=== PATIENT | male | born 1985 | race Caucasian/White ===

== ENCOUNTER 2018-12-04 20:34 | Emergency (ER) | payer MEDICAID ==
[~2018-12-04] VITALS: Ht 175.3 cm; Wt 64.9 kg
[2018-12-04] MEDS ORDERED: ONDA8TAB6 PO (20:46)
[2018-12-04] MEDS ORDERED: OMEP20CA4 PO (20:46)
--- NOTE | 2018-12-04 20:56 | NUR ---
Dr. Hoffmann in patient room
[2018-12-04] MEDS ORDERED: MORPHINE SULFATE 4 MG/1 ML DISP.SYRIN ONE (21:10)
[2018-12-04] MEDS ORDERED: ONDANSETRON 4 MG/2 ML VIAL ONE ×2 (21:10→21:31)
[2018-12-04] MEDS ORDERED: PANTOPRAZOLE SODIUM 40 MG VIAL IV ONE (21:15)
[2018-12-04] MEDS ORDERED: diphenhydrAMINE 50 MG/1 ML VIAL IV ONE (21:15)
[2018-12-04] MEDS ORDERED: METOCLOPRAMIDE HCL 10 MG/2 ML VIAL IV ONE (21:15)
[2018-12-04] MEDS ORDERED: IV NORMAL SALINE 1000 ML BAG IV ONE (21:15)
[2018-12-04] MEDS ORDERED: ONDANSETRON 4 MG/2 ML VIAL IV ONE (21:15)
[2018-12-04] MEDS ORDERED: HYDROMORPHONE 1 MG/1 ML DISP.SYRIN ONE (21:20)
[2018-12-04 21:22] LABS: BASOPHILS # (AUTO) 0.2 K/uL (0.0-8.0); EOSINOPHILS # (AUTO) 0.3 K/uL (0.0-0.7); EOSINOPHILS % (AUTO) 1.8 % (0.0-7.0); HEMATOCRIT 42.1 % (36.7-47.1); HEMOGLOBIN 13.8 g/dL (12.5-16.3); LYMPHOCYTES # (AUTO) 2.4 K/uL (20.0-40.0); LYMPHOCYTES % (AUTO) 14.7 % (20.5-51.5); MEAN CORPUSCULAR HEMOGLOBIN 30.1 uug (23.8-33.4); MEAN CORPUSCULAR HGB CONC 33 g/dL (32.5-36.3); MEAN CORPUSCULAR VOLUME 92.2 fL (73.0-96.2); MONOCYTES # (AUTO) 0.8 K/uL (2.0-10.0); MONOCYTES % (AUTO) 4.8 % (0.0-11.0); NEUTROPHILS # (AUTO) 12.4 K/uL (1.8-8.9); NEUTROPHILS % (AUTO) 77.7 % (38.5-71.5); PLATELET COUNT (AUTO) 295 K/uL (152-348); RED BLOOD CELL COUNT(AUTO) 4.57 MIL/uL (4.06-5.63)
[2018-12-04] MEDS ORDERED: METOCLOPRAMIDE HCL 10 MG/2 ML VIAL ONE (21:31)
[2018-12-04] MEDS ORDERED: PANTOPRAZOLE SODIUM 40 MG VIAL ONE (21:31)
[2018-12-04] MEDS ORDERED: diphenhydrAMINE 50 MG/1 ML VIAL ONE (21:32)
[2018-12-04 21:35] LABS: POTASSIUM 3.8 mmol/L (3.5-5.1)
[2018-12-04 21:41] LABS: BILIRUBIN,DIRECT 0.1 mg/dL (0.0-0.2); BILIRUBIN,TOTAL 0.2 mg/dL (0.2-1.0); TOTAL PROTEIN, SERUM 7.2 g/dL (6.4-8.2)
--- NOTE | 2018-12-04 22:28 | NUR ---
Patient discharged to home in stable conditon. Written and verbal after care instructions given. Patient verbalizes understanding of instructions. patient ambulatory with steady gait. Exit care oackage and oersonal belongings taken with patient. Patient mother verbalizes and consent to driving ther patient home. Patient denies any pain/discomfort prior to discharge.,
[2018-12-04 22:43] VITALS: BP 107/71
== END 2018-12-04 22:30 | disposition home or self-care (01) ==
LOC: ER 20:36
DX: K29.70 Gastritis, unspecified, without bleeding (principal); K21.9 Gastro-esophageal reflux disease without esophagitis; Z90.49 Acquired absence of other specified parts of digestive tract; Z79.899 Other long term (current) drug therapy
CPT/HCPCS: 36415; 80048; 80076; 83690; 85025; 96361; 96374; 96375; 99283; C9113; J1200; J2405 ×2; J2765; A4663; J1170; J2270; J7030

== ENCOUNTER 2020-12-30 19:52 | Emergency (ER) | payer MEDICAID ==
[~2020-12-30] VITALS: Ht 175.3 cm; Wt 63.5 kg
[~2020-12-30 19:52] MED LIST: OMEP20CA4 PO; ONDA8TAB6 PO
--- NOTE | 2020-12-30 20:05 | NUR ---
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 PT A/O X4, NO SOB OR LABORED BREATHING, AFEBRILE. DENIES ANY CP/PRESSURE. PT WAS GIVEN ORAL 4MG ZOFRAN ON THE FIELD. CLEAR SPEECH, COMPLETE SENTENCES. DR. WHITE AT BEDSIDE, MSE IN PROGRESS.
[2020-12-30] MEDS ORDERED: ONDANSETRON 4 MG/2 ML VIAL IV ONE ×2 (20:15→21:15)
[2020-12-30] MEDS ORDERED: IV NORMAL SALINE 1000 ML BAG IV ONE (20:15)
--- NOTE | 2020-12-30 20:18 | NUR ---
LAB AT BEDSIDE.
[2020-12-30] MEDS ORDERED: ONDANSETRON 4 MG/2 ML VIAL ONE ×2 (20:34→21:21)
[2020-12-30 20:38] LABS: HEMATOCRIT 42.9 % (36.7-47.1); MEAN CORPUSCULAR HEMOGLOBIN 31.8 uug (23.8-33.4); MEAN CORPUSCULAR VOLUME 93.9 fL (73.0-96.2); PLATELET COUNT (AUTO) 371 K/uL (152-348)
[2020-12-30 21:00] LABS: POTASSIUM 3.8 mmol/L (3.5-5.1)
[2020-12-30 21:04] LABS: BILIRUBIN,DIRECT 0.1 mg/dL (0.0-0.2); BILIRUBIN,TOTAL 0.1 mg/dL (0.2-1.0); TOTAL PROTEIN, SERUM 7.8 g/dL (6.4-8.2)
--- NOTE | 2020-12-30 21:12 | NUR ---
PT TAKEN DOWN FOR CT.
[2020-12-30] MEDS ORDERED: IOHEXOL 300MG/ML 100 ML INFUS..BTL ONE (21:27)
[2020-12-30] MEDS ORDERED: SWABABLE VALVE TRANSFER SET EA MC ONE (21:27)
[2020-12-30] MEDS ORDERED: IV NORMAL SALINE 250 ML IV ONE (21:27)
--- NOTE | 2020-12-30 21:33 | NUR ---
PT RETURNED FROM CT.
[2020-12-30] MEDS ORDERED: MORPHINE SULFATE 2 MG/1 ML DISP.SYRIN ONE (21:38)
[2020-12-30] MEDS ORDERED: PANTOPRAZOLE SODIUM 40 MG VIAL IV ONE (23:15)
[2020-12-30] MEDS ORDERED: diphenhydrAMINE 50 MG/1 ML VIAL IV ONE (23:15)
[2020-12-30] MEDS ORDERED: PANTOPRAZOLE SODIUM 40 MG VIAL ONE (23:16)
[2020-12-30] MEDS ORDERED: diphenhydrAMINE 50 MG/1 ML VIAL ONE (23:16)
--- NOTE | 2020-12-30 23:46 | NUR ---
PT RESTING COMFORTABLY IN BED. NO N/V NOTED.
[2020-12-31] MEDS ORDERED: DICY20TA11 PO (00:36)
[2020-12-31] MEDS ORDERED: ONDA4TAB11 PO (00:36)
--- NOTE | 2020-12-31 01:20 | NUR ---
CALLED [facility] AND SET UP TRANSPORTATION TO PATIENT'S [facility]. SPOKE WITH
--- NOTE | 2020-12-31 01:30 | NUR ---
Patient discharged to home in stable condition. A/O x4, no SOB or labored breathing, afebrile. Denies any n/v/d. No NICHOLS or dizziness noted. Denies any abd. pain. Written and verbal after care instructions given. Patient verbalizes understanding of instructions. Stressed follow up or return to ER for worsening s/s. Steady gait.
[2020-12-31 01:49] VITALS: BP 140/72
== END 2020-12-31 01:32 | disposition home or self-care (01) ==
LOC: ER 19:52
DX: R10.13 Epigastric pain (principal); R11.2 Nausea with vomiting, unspecified; Z90.49 Acquired absence of other specified parts of digestive tract; R94.31 Abnormal electrocardiogram [ECG] [EKG]
CPT/HCPCS: 36415; 74177; 80048; 80076; 83605; 83690; 84484; 85025; 93005; 96361; 96374; 96375; 96376; 99285; C9113; J1200; J2270; J2405 ×2; Q9967; 70030-TC; A4663; J7030; J7050

== ENCOUNTER 2020-12-31 03:14 | Inpatient (IN) | payer MEDICAID ==
[~2020-12-31] VITALS: Ht 175.3 cm; Wt 63.5 kg
[~2020-12-31 03:14] MED LIST changes: +DICY20TA11 PO; +ONDA4TAB11 PO
--- NOTE | 2020-12-31 03:56 | NUR ---
PT AMBULATED TO ER C/O VOMITTING GREEN BILE. A/O X4 NO SOB OR LABORED BREATHING, AFEBRILE.
[2020-12-31] MEDS ORDERED: diphenhydrAMINE 50 MG/1 ML VIAL ONE (04:34)
[2020-12-31] MEDS ORDERED: IV NORMAL SALINE 500 ML BAG IV ONE (04:45)
[2020-12-31] MEDS ORDERED: diphenhydrAMINE 50 MG/1 ML VIAL IV ONE (04:45)
[2020-12-31] MEDS ORDERED: PROMETHAZINE HCL 12.5 MG SUPP.RECT RC ONE (04:45)
[2020-12-31] MEDS ORDERED: PROMETHAZINE HCL 25 MG SUPP.RECT RC ONE (04:49)
--- NOTE | 2020-12-31 06:15 | NUR ---
Patient is resting comfortably in bed with eyes closed. Breathing even and unlabored.
--- NOTE | 2020-12-31 06:16 | NUR ---
CALLED [facility] FOR PANEL CALL, ZEUS NEGRETE PAGED.
[2020-12-31] MEDS ORDERED: MORPHINE SULFATE 2 MG/1 ML DISP.SYRIN IV ONE (06:45)
[2020-12-31] MEDS ORDERED: MORPHINE SULFATE 4 MG/1 ML DISP.SYRIN ONE (06:57)
--- NOTE | 2020-12-31 07:05 | NUR ---
Cable Engineer assumes care: Patient is for admission to 3rd floor medical surgical floor under care of [employer] MACHINE OPERATOR antonino Torres. Belongings List completed, pending assigned nurse & [email or web address] time. Patient is resting comfortably on gurney with eyes closed, NAD.
[2020-12-31] MEDS ORDERED: IV 1/2NS 1000 ML 1,000 ML IV PRN ×2 (07:15→15:15)
[2020-12-31] MEDS ORDERED: ONDANSETRON 4 MG/2 ML VIAL IV PRN ×2 (07:15→15:15)
[2020-12-31] MEDS ORDERED: MORPHINE SULFATE 2 MG/1 ML DISP.SYRIN IV PRN ×2 (07:15→19:15)
[2020-12-31] MEDS ORDERED: ACETAMINOPHEN 325 MG TABLET PO PRN ×2 (07:15→15:15)
[2020-12-31] MEDS ORDERED: LORAZEPAM 2 MG/1 ML VIAL IV PRN ×2 (07:15→15:15)
[2020-12-31 07:26] LABS: HEMATOCRIT 44.2 % (36.7-47.1); MEAN CORPUSCULAR HEMOGLOBIN 31.6 uug (23.8-33.4); MEAN CORPUSCULAR VOLUME 93.8 fL (73.0-96.2); PLATELET COUNT (AUTO) 351 K/uL (152-348)
[2020-12-31 07:36] LABS: CREATININE 0.7 mg/dL (0.6-1.3); POTASSIUM 3.9 mmol/L (3.5-5.1)
--- NOTE | 2020-12-31 14:22 | NUR ---
Patient voided 2x but forgot to provide urine specimen.
--- NOTE | 2020-12-31 14:29 | NUR ---
Patiet is eating lunch tray. We are checking for nausea/vomiting. Patient may be discharged from ER per Dr Roldan.
--- NOTE | 2020-12-31 14:43 | NUR ---
Dr [email or web address], reevaluation by MD in progress.
--- NOTE | 2020-12-31 14:54 | NUR ---
Note marcus in EDM - 12/31/20 at 1457 by SINDY Patient discharged to home in stable condition, pending ride/pick-up. Written and verbal after care instructions given to patient. Patient verbalized understanding and compliance of instructions. Stressed follow up with her primary doctor or psychiatrist or return to ER for worsening s/s.
--- NOTE | 2020-12-31 15:11 | NUR ---
Patient given written and verbal discharge instructions. Patient verbalized understanding and complianceof instructions. Patient is ambulatory with steady gait. Patient refuses offer of [facility] placement. "I am waiting for my section 8 housing. I'm in the process." per patient. Patient was given list of available shelters in surrounding area.
--- NOTE | 2020-12-31 15:23 | NUR ---
[employer] Outside Sales Manager Note Patient is a 35 year old White male who is alert and oriented 4x. Patient is ambulatory and appeared to have insight. SW meet with patient per his request as he needed assistance with transportation home. Patient stated his home was [address] [place] [address]. SW provided patient with a TAP card as a means of transportation. SW asked patient if he was in need of additional resources and patient declined.
== END 2020-12-31 15:11 | disposition home or self-care (01) | DRG 776 ==
LOC: ER 03:15 → TRANSITION 07:05 → ER 15:14
PROVIDERS: ADMIT Nurse Practitioner Acute Care; ATTEND Nurse Practitioner Acute Care
DX: F12.188 Cannabis abuse with other cannabis-induced disorder (principal); D72.829 Elevated white blood cell count, unspecified; R11.11 Vomiting without nausea; K22.70 Barrett's esophagus without dysplasia; Z59.00 Homelessness unspecified; Z20.822 Contact with and (suspected) exposure to COVID-19; R10.9 Unspecified abdominal pain; Z90.49 Acquired absence of other specified parts of digestive tract
CPT/HCPCS: 36415; 83690; 85025; A4663; G0378; J1200; J2270

== ENCOUNTER 2022-02-10 21:29 | Emergency (ER) | payer MEDICAID ==
[~2022-02-10] VITALS: Ht 170.2 cm; Wt 63.5 kg
--- NOTE | 2022-02-10 21:42 | NUR ---
Dr. Bailey at bedside for MSE.
[2022-02-10] MEDS ORDERED: IV NORMAL SALINE 1000 ML BAG IV ONE (21:45)
[2022-02-10] MEDS ORDERED: ONDANSETRON 4 MG/2 ML VIAL IV ONE (21:45)
[2022-02-10] MEDS ORDERED: HYDROMORPHONE 1 MG/1 ML DISP.SYRIN IV ONE (21:45)
[2022-02-10] MEDS ORDERED: PANTOPRAZOLE SODIUM IV 40 MG in IV DEXTROSE 5% 100 ML IV ONE (21:45)
[2022-02-10] MEDS ORDERED: IV NORMAL SALINE 250 ML IV ONE (21:49)
[2022-02-10] MEDS ORDERED: IOHEXOL 300MG/ML 100 ML INFUS..BTL ONE (21:49)
[2022-02-10] MEDS ORDERED: SWABABLE VALVE TRANSFER SET EA MC ONE (21:49)
[2022-02-10 22:01] LABS: *BILIRUBIN,URIN NEGATIVE (NEGATIVE); *BLOOD, URINE NEGATIVE (NEGATIVE); *CLARITY,URINE CLEAR (CLEAR); *COLOR,URINE YELLOW (YELLOW); *KETONES,URINE TRACE (NEGATIVE); *UROBILINOGEN,URINE 0.2 E.U./dl (NORMAL); LEUKOCYTE ESTERASE ,URINE NEGATIVE (NEGATIVE); NITRITE, URINE NEGATIVE (NEGATIVE); UGLUCOSE NEGATIVE (NEGATIVE)
[2022-02-10] MEDS ORDERED: ONDANSETRON 4 MG/2 ML VIAL ONE (22:01)
[2022-02-10] MEDS ORDERED: HYDROMORPHONE 1 MG/1 ML DISP.SYRIN ONE (22:02)
[2022-02-10] MEDS ORDERED: PANTOPRAZOLE SODIUM 40 MG VIAL ONE (22:02)
[2022-02-10 22:06] LABS: HEMATOCRIT 42.8 % (36.7-47.1); MEAN CORPUSCULAR HEMOGLOBIN 30.9 uug (23.8-33.4); MEAN CORPUSCULAR VOLUME 93.3 fL (73.0-96.2); PLATELET COUNT (AUTO) 393 K/uL (152-348)
[2022-02-10 22:14] LABS: *AMPHETAMINE, URINE POSITIVE (NEGATIVE); *CANNABINOID, URINE POSITIVE (NEGATIVE); *COCCAINE, URINE NEGATIVE (NEGATIVE); *OPIATE, URINE NEGATIVE (NEGATIVE); *PHENCYCLIDINE SCREEN,URINE NEGATIVE (NEGATIVE)
[2022-02-10 22:21] LABS: BILIRUBIN,DIRECT 0.1 mg/dL (0.0-0.2); BILIRUBIN,TOTAL 0.5 mg/dL (0.2-1.0); POTASSIUM 3.7 mmol/L (3.5-5.1); TOTAL PROTEIN, SERUM 7.6 g/dL (6.4-8.2)
[2022-02-10] MEDS ORDERED: DICY20TA11 PO (23:03)
[2022-02-10] MEDS ORDERED: ONDA4TAB5 PO (23:03)
--- NOTE | 2022-02-10 23:22 | NUR ---
Pt medically cleared for booking to longterm by Dr. Bailey, patient released to the custody of [facility] officer Amna Reyes#[id number].
[2022-02-10 23:23] VITALS: BP 140/90
== END 2022-02-10 23:24 ==
LOC: ER 21:29
DX: R10.10 Upper abdominal pain, unspecified (principal); R11.0 Nausea; G89.29 Other chronic pain; Z90.49 Acquired absence of other specified parts of digestive tract; K21.9 Gastro-esophageal reflux disease without esophagitis; Z88.8 Allergy status to other drugs, medicaments and biological substances; R03.0 Elevated blood-pressure reading, without diagnosis of hypertension
CPT/HCPCS: 99285; 74177; 96374; 96375; 96361; 80076; 80048; 83690; 85025; 36415; 80307; 81003; J2405; Q9967; C9113 ×2; J1170; J7040; A4663